=== PATIENT | male | born 1985 | race African-American/Black ===

== ENCOUNTER 2017-06-05 10:23 | Emergency (ER) | payer MEDICAID ==
[~2017-06-05] VITALS: Ht 180.3 cm; Wt 73.2 kg
[~2017-06-05 10:23] MED LIST: CLIN-79 PO
[2017-06-05] MEDS ORDERED: cyclobenzaprine 10mg tablet PO ONE (11:15)
[2017-06-05] MEDS ORDERED: ketorolac trometh inj. 60 MG/2 ML VIAL IM ONE (11:15)
[2017-06-05] MEDS ORDERED: HYDROcodone/acetaminophen 10/325mg tab PO ONE (11:15)
[2017-06-05] MEDS ORDERED: TRAM50TA2 PO (11:20)
[2017-06-05 11:25] VITALS: BP 111/61
== END 2017-06-05 14:04 | disposition home or self-care (01) ==
LOC: ER 10:23
DX: M54.6 Pain in thoracic spine (principal); M54.14 Radiculopathy, thoracic region; Z88.6 Allergy status to analgesic agent; Z88.0 Allergy status to penicillin
CPT/HCPCS: 72070; 96372; 99284; J1885

== ENCOUNTER 2017-09-14 03:57 | Emergency (ER) | payer MEDICAID ==
[~2017-09-14 03:57] MED LIST changes: -CLIN-79 PO; +CLIN150C8 PO
== END 2017-09-14 04:10 | disposition left against medical advice (07) ==
LOC: ER 03:57
DX: M25.559 Pain in unspecified hip (principal); Z53.21 Procedure and treatment not carried out due to patient leaving prior to being seen by health care provider